=== PATIENT | female | born 1935 | race Caucasian/White ===

== ENCOUNTER 2017-05-22 08:57 | Emergency (ER) | payer MEDICARE, BC ==
[~2017-05-22] VITALS: Ht 160 cm; Wt 84.4 kg
[~2017-05-22 08:57] MED LIST: ADVA500A INH; ALBU6.7H INH; CHOL50006; CIPR-9 PO; Calcium Carbonate CHEW; FLOV50AE; GLIM2TAB PO; OLOP.1%O EACH EYE; OMEG100010; ZOFR4TAB3 SL
[2017-05-22 09:10] VITALS: BP 177/87; PULSE 92; RESP 16; TEMP 98.2; O2SAT 96
--- NOTE | 2017-05-22 09:14 | PD ---
HPI Chief Complaint: head injury Time Seen by Provider: 09:04 Travel History International Travel<30 days: No Contact w/Intl Traveler<30days: No Traveled to known affect area: No History of Present Illness HPI 81-year-old female here for evaluation of head injury. The patient reports that after getting out of bed this morning at around 7 AM she tripped on the nightstand and struck her forehead. She denies LOC. She has a lump on her left forehead which is moderately painful. She denies neck pain. She is having some soreness to her left knee and left shoulder. She is not on any antiplatelets or anticoagulants. Patient also shows me a lump lateral to her right eye which she states has been there for years, however has been increasing in size recently. PFSH Past Medical History Hx Anticoagulant Therapy: No Arthritis: Yes Asthma: No Autoimmune Disease: No Blood Disorders: No Heart Rhythm Problems: No Cancer: No Cardiovascular Problems: Yes High Cholesterol: No Chemotherapy: No Chest Pain: No Congestive Heart Failure: No COPD: No Diabetes: Yes Diminished Hearing: No Diverticulitis: Yes Deep Vein Thrombosis: Yes Endocrine: Yes Gastrointestinal Disorders: Yes GERD: No Genitourinary: Yes Hepatitis: No Hiatal Hernia: Yes Hypertension: Yes Immune Disorder: No Implanted Vascular Access Dvce: Yes Kidney Stones: No Musculoskeletal: Yes Neurologic: No Psychiatric: No Reproductive: No Respiratory: No Immunizations Current: Yes Myocardial Infarction: Yes Radiation Therapy: No Renal Failure: No Sleep Apnea: Yes (OXYGEN AT NIGHT) Thyroid Disease: Yes (GOITER, PARATHYROID REMOVED MARCH 25, 2015) Ulcer: No Menopausal: Yes Past Surgical History Abdominal Surgery: No AICD: No Appendectomy: Yes Arteriovenous Shunt: No Body Medical Devices: 2 CADAVER BONES C5,C6 Cardiac Surgery: No Ear Surgery: Yes (RIGHT EAR TUBES) Endocrine Surgery: No Eye Surgery: Yes (CATARACT REMOVED BOTH EYES 2011) Genitourinary Surgery: No Gynecologic Surgery: Yes (TOTAL HYSTERECTOMY) Hysterectomy: Yes Insulin Pump: No Joint Replacement: Yes (RIGHT KNEE) Neurologic Surgery: No Oral Surgery: No Pacemaker: No Thoracic Surgery: No Tonsillectomy: Yes Other Surgery: Yes (BONE GRAFT C5-6, PARATHYROID REMOVED) Social History Alcohol Use: No Tobacco Use: No (QUIT IN 70'S) Substance Use: No Allergies-Medications (Allergen,Severity, Reaction): Coded Allergies: codeine (Unverified Allergy, Severe, Rash, 05/22/17) amoxicillin (Unverified Adverse Reaction, Severe, Vomiting, body aches, ) clavulanic acid (Unverified Adverse Reaction, Severe, Vomiting, body aches , 05/22/17) Reported Meds & Prescriptions Reported Meds & Active Scripts Active Reported Ferrous Gluconate 325 Mg Tab 325 Mg PO DAILY Hydrocodone-Acetaminophen 10-325 mg Tab 1 Tab PO Q6H PRN Lyndsey-Colace (Sennosides-Docusate Sodium) 8.6-50 Mg Tab 1 Tab PO DAILY PRN Fish Oil + D3 (Fish Oil-Cholecalciferol) 1,200-1,000 Mg-Unit Cap 1 Cap PO BID Caltrate 600+D Chew (Calcium Carbonate-Vitamin D Chew) 600-400 Mg-Unit Chew 1 Tab PO BID Patanol Opth 0.1% (Olopatadine HCl) 0.1 % Drops 1 Drop EACH EYE BID Advair Diskus Inh (Fluticasone-Salmeterol Inh) 500-50 Mcg/Blist Aer 1 Puff INH BID Rinse mouth after use. Tramadol (Tramadol HCl) 50 Mg Tab 50 Mg PO Q4H PRN Omeprazole 20 Mg Tab 20 Mg PO DAILY Enalapril (Enalapril Maleate) 20 Mg Tab 20 Mg PO BID Amlodipine (Amlodipine Besylate) 2.5 Mg Tab 2.5 Mg PO DAILY Levothyroxine (Levothyroxine Sodium) 50 Mcg Tab 50 Mcg PO DAILY Dicyclomine (Dicyclomine HCl) 10 Mg Cap 10 Mg PO QID PRN Calcium Carbonate 1,500 Mg Tab 500 Mg PO BID 1,500 mg calcium carbonate (600 mg elemental calcium) Proventil Hfa 6.7 GM Inh (Albuterol Sulfate) 90 Mcg/Act Aer 2 Puff INH Q4H PRN Simvastatin 40 Mg Tab 40 Mg PO HS Fluticasone Nasal [place] 50 Mcg/Act Naspr 50 Mcg EACH NARE DAILY 50 mcg/spray Furosemide 40 Mg Tab 40 Mg PO DAILY Aspirin Low Dose (Aspirin) 81 Mg Chew 81 Mg CHEW DAILY Review of Systems Except as stated in HPI: all other systems reviewed are Neg Physical Exam Narrative GENERAL: Well-developed, well-nourished, awake, alert, GCS 15, no apparent distress. SKIN: Focused skin assessment warm/dry. Left forehead with ecchymosis and moderate sized hematoma. HEAD: Left forehead with ecchymosis and moderate sized hematoma. No craniofacial step-offs. Lateral to the right eyelid is a firm nodule. Normocephalic. EYES: Pupils equal, round, 3 mm, reactive to light. EOMI. No scleral icterus. No injection or drainage. ENT: No nasal bleeding or discharge. Mucous membranes pink and moist. NECK: Trachea midline. No JVD. No midline cervical spine step-off or tenderness. CARDIOVASCULAR: Regular rate and rhythm. Harsh holosystolic murmur. RESPIRATORY: No accessory muscle use. Clear to auscultation. Breath sounds equal bilaterally. MUSCULOSKELETAL: Left knee without obvious deformity, with mild tenderness, with normal range of motion. Left shoulder and clavicles are without deformity and without step-off, mildly tender, normal range of motion. The rest of her joints and extremities are without deformity, without tenderness, with normal range of motion. NEUROLOGICAL: Awake and alert. No obvious cranial nerve deficits. Motor grossly within normal limits. Normal speech. PSYCHIATRIC: Appropriate mood and affect; insight and judgment normal. Data Data Last Documented VS Vital Signs Date Time Temp Pulse Resp B/P (MAP) Pulse Ox O2 Delivery O2 Flow Rate FiO2 05/22/17 09:10 98.2 92 16 177/87 (117) [address] Brain W/O Iv Contrast(Rout) (05/22/17 ) Ct Cerv Spine W/O Contrast (05/22/17 ) Acetaminophen (Tylenol) (05/22/17 10:45) MDM Medical Decision Making Medical Screen Exam Complete: Yes Emergency Medical Condition: Yes Differential Diagnosis Closed head injury, intracranial trauma, cervical spine injury Narrative Course Vital signs reviewed. CT head: CONCLUSION: Normal examination for a patient of this age. CT cervical spine: CONCLUSION: 1. Postsurgical features of intradiscal and anterior plate and screw fixation at C4-6. Hardware is intact without evidence for loosening. 2. No acute fracture or subluxation. 3. 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 4. Left thyroid lobectomy with diffusely heterogeneous appearing right thyroid lobe. The patient was made aware of all findings and provided a copy of her CT reports. She is resting comfortably. GCS is 15. She was advised to follow-up with her primary care physician regarding her heterogeneous right thyroid lobe. She is stable for discharge home with outpatient follow-up. She was informed on when to return to the emergency department. She verbalizes understanding and agreement with plan. Diagnosis Primary Impression: Closed head injury Qualified Codes: S09.90XA - Unspecified injury of head, initial encounter Additional Impression: Fall Qualified Codes: W19.XXXA - Unspecified fall, initial encounter Referrals: Primary Care Physician 3 days Additional Instructions: Follow-up with your primary care physician this week. Return to the emergency department for worsening symptoms or any other concerns. Disposition: 01 DISCHARGE HOME Condition: Stable Manas Pelayo MD May 22, 2017 09:14
[2017-05-22] MEDS ORDERED: FISHCAP4 PO (09:33)
[2017-05-22] MEDS ORDERED: OLOP.1%O EACH EYE (09:33)
[2017-05-22] MEDS ORDERED: PERI8.6T PO (09:33)
[2017-05-22] MEDS ORDERED: ENAL20TA PO (09:33)
[2017-05-22] MEDS ORDERED: FURO40TA PO (09:33)
[2017-05-22] MEDS ORDERED: LEVO50TA4 PO (09:33)
[2017-05-22] MEDS ORDERED: DICY10CA12 PO (09:33)
[2017-05-22] MEDS ORDERED: ADVA500A INH (09:33)
[2017-05-22] MEDS ORDERED: TRAM50TA PO (09:33)
[2017-05-22] MEDS ORDERED: HYDR-3583 PO (09:33)
[2017-05-22] MEDS ORDERED: ALBU6.7H INH (09:33)
[2017-05-22] MEDS ORDERED: ASPI81CH37 CHEW (09:33)
[2017-05-22] MEDS ORDERED: CALC600T4 PO (09:33)
[2017-05-22] MEDS ORDERED: FLUT50SP EACH NARE (09:33)
[2017-05-22] MEDS ORDERED: FERR325T72 PO (09:33)
[2017-05-22] MEDS ORDERED: CALTCHW5 PO (09:33)
[2017-05-22] MEDS ORDERED: SIMV40TA PO (09:33)
[2017-05-22] MEDS ORDERED: AMLO2.5T PO (09:33)
[2017-05-22] MEDS ORDERED: OMEP20TA PO (09:33)
--- NOTE | 2017-05-22 10:20 | RADRPT ---
EXAM DATE/TIME: 05/22/2017 09:59 [facility] COMPARISON: CT BRAIN W/O CONTRAST, November 05, 2013, 13:16. INDICATIONS : Fell. Left frontal soft tissue swelling and right temporal lump. RADIATION DOSE: 60.91 CTDIvol (mGy) MEDICAL HISTORY : Myocardial infarction. Hypertension. Deep venous thrombosis. SURGICAL HISTORY : Tonsillectomy. Goiter removed. Parathyroid removed. Bilateral cataracts removed. ENCOUNTER: Initial ACUITY: 1 day PAIN SCALE: 5/10 LOCATION: Left frontal TECHNIQUE: Multiple contiguous axial images were obtained of the head. Using automated exposure control and adj ustment of the mA and/or kV according to patient size, radiation dose was kept as low as reasonably a chievable to obtain optimal diagnostic quality images. DICOM format image data is available electro nically for review and comparison. FINDINGS: There are no fractures identified. Hyperostosis frontalis interna is noted. No signs of intracranial hemorrhage, mass, or infarct. Ventricles and cisterns are of normal size and configuration for age. CONCLUSION: Normal examination for a patient of this age. Prudencio Beltran MD on May 22, 2017 at 10:16 Board Certified Radiologist. This report was verified electronically.
[2017-05-22] MEDS ORDERED: ACETAMINOPHEN 325 MG TAB PO ONE (10:45)
--- NOTE | 2017-05-22 10:47 | RADRPT ---
EXAM DATE/TIME: 05/22/2017 09:59 [facility] COMPARISON: No previous studies available for comparison. INDICATIONS : Fell. Left sided pain. RADIATION DOSE: 26.67 CTDIvol (mGy) MEDICAL HISTORY : Myocardial infarction. Hypertension. Deep venous thrombosis. SURGICAL HISTORY : Tonsillectomy. Fusion, cervical.Goiter removed. Parathyroid removed. ENCOUNTER: Initial ACUITY: 1 day PAIN SCALE: 6/10 LOCATION: Left neck TECHNIQUE: Volumetric scanning of the cervical spine was performed. Multiplanar reconstructions in the sagittal, coronal and oblique axial planes were performed. Using automated exposure control and adjustment o f the mA and/or kV according to patient size, radiation dose was kept as low as reasonably achievable to obtain optimal diagnostic quality images. DICOM format image data is available electronically f or review and comparison. FINDINGS: Postsurgical features of intradiscal and anterior plate and screw fixation at C4-6. Hardware appears intact without evidence for a lucency to suggest loosening. Small Schmorl's node superior endplate of T1. Vertebral body heights are otherwise maintained. Dens is intact. Sagittal alignment is maintaine d. Facets are normally aligned. Normal C1-2 relationship. There is no significant prevertebral soft t issue swelling or hematoma. Postsurgical features of prior left thyroid lobectomy are noted. Right th yroid lobe is diffusely heterogeneous and enlarged. Visualized lung apices demonstrate no pneumothora x. There is no significant cervical adenopathy or mass. There is degenerative spondylosis of the cerv ical spine with mild posterior disc osteophyte complex at C3-4 and C6-7 motion segments. No significa nt bony central canal narrowing. Mild to moderate left bony neural foraminal narrowing secondary to o steophytes at C3-4. CONCLUSION: 1. Postsurgical features of intradiscal and anterior plate and screw fixation at C4-6. Hardware is in tact without evidence for loosening. 2. No acute fracture or subluxation. 3. 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 4. Left thyroid lobectomy with diffusely heterogeneous appearing right thyroid lobe. Joel Hernandez MD on May 22, 2017 at 10:28 Board Certified Radiologist. This report was verified electronically.
[2017-05-22 11:25] VITALS: BP 136/80; PULSE 86; RESP 16; O2SAT 95
== END 2017-05-22 11:30 | disposition home or self-care (01) ==
LOC: PHED 08:57
DX: S09.90XA Unspecified injury of head, initial encounter (principal); W18.09XA Striking against other object with subsequent fall, initial encounter
CPT/HCPCS: 70450; 72125; 99285